=== PATIENT | male | born 1960 ===

== ENCOUNTER 2022-01-03 16:30 | Outpatient (CLI) | payer BC | END 2022-01-03 16:31 | disposition home or self-care (01) | LOC: SLEEPLAB 16:30 | PROVIDERS: ATTEND Family Medicine | DX: G47.33 Obstructive sleep apnea (adult) (pediatric) (principal); R53.83 Other fatigue; R09.89 Other specified symptoms and signs involving the circulatory and respiratory systems; R06.83 Snoring; G47.00 Insomnia, unspecified; I10 Essential (primary) hypertension | CPT/HCPCS: 95806 ==